=== PATIENT | female | born 1945 | race African-American/Black ===

== ENCOUNTER 2018-05-31 16:29 | Emergency (ER) | payer OTHER ==
[2018-05-31 18:05] LABS: #Basophils 0.1 thou/uL (0.0-0.2); #Eosinphils 0.2 thou/uL (0.0-0.7); #Lymphocytes 2.9 thou/uL (1.20-3.40); #Monocytes 0.8 thou/uL (0.11-0.59); #Neutrophils 5.6 thou/uL (1.40-6.50); %Basophils 0.7 % (0.0-1.0); %Eosinophils 2.1 % (0.0-10.0); %Lymphocytes 30.6 % (21.0-51.0); %Monocytes 8.4 % (0.0-10.0); %Neutrophils 58.2 % (42.0-75.0); Hemoglobin 12.2 g/dL (12.0-16.0); Mean Corpuscular HGB CONC 33.2 g/dL (32.0-36.0); Mean Corpuscular Hemoglobin 30.8 pg (27.0-31.0); Mean Corpuscular Volume 92.8 fL (78.0-98.0); Mean Platelet Volume 9.3 fL (7.4-10.4); Platelet Count 303 thou/uL (130-400); RBC Distribution Width 11.7 % (11.5-14.5); Red Blood Cell (RBC) Count 3.96 mill/uL (4.20-5.40); White Blood Cell (WBC) Count 9.6 thou/uL (4.8-10.8)
[2018-05-31 18:33] LABS: ALT (SGPT) 12 U/L (8-55); AST (SGOT) 20 U/L (5-34); Albumin 4.4 g/dL (3.4-4.8); Alkaline Phosphatase 94 U/L (40-150); Anion Gap 10 mmol/L (10-20); BUN (Urea Nitrogen) 16 mg/dL (9.8-20.1); Bilirubin, Total 1.4 mg/dL (0.2-1.2); Calc. Creatinine Clearance 0 mL/min (70-130); Calcium 9.7 mg/dL (7.8-10.44); Carbon Dioxide 27 mmol/L (23-31); Chloride 105 mmol/L (98-107); Estimated GFR-MDRD 68; Globulin 3.1 g/dL (2.4-3.5); Glucose 103 mg/dL (80-115); Potassium 4.3 mmol/L (3.5-5.1); Protein, Total 7.5 g/dL (6.0-8.3); Sodium 138 mmol/L (136-145)
[2018-05-31 18:35] LABS: CKMB 0.7 ng/mL (0-6.6); Troponin I Less than 0.010 ng/mL (< 0.028)
[2018-05-31 20:15] LABS: CK (CPK) 103 U/L (29-168); Lipase 100 U/L (8-78)
[2018-05-31 20:49] LABS: Troponin I Less than 0.010 ng/mL (< 0.028)
--- NOTE | 2018-05-31 20:56 | RAD ---
PORTABLE AP CHEST X-RAY: 05/31/2018 HISTORY: Chest pain. FINDINGS: The cardiac silhouette and pulmonary vasculature are within normal limits. The lungs are clear. The re is left glenohumeral osteoarthropathy. Roxton screws overly the right humeral head. There is a l ucency with sclerotic margins seen in the proximal right humerus, which has a nonaggressive appearanc e and may potentially be post surgical in origin. A gastric band overlies the left upper quadrant. Vascular calcifications are seen in the thoracic aorta. IMPRESSION: No acute cardiopulmonary process. POS: [facility]
--- NOTE | 2018-06-05 13:26 | EKG ---
Test Reason : Blood Pressure : / mmHG Vent. Rate : 048 BPM Atrial Rate : 048 BPM P-R Int : 184 ms QRS Dur : 080 ms QT Int : 446 ms P-R-T Axes : 013 004 -20 degrees QTc Int : 398 ms Sinus bradycardia Abnormal ECG No ST elevation/UT Confirmed by LUNA KURTZ ([id number]), proposal editor MATHEUS CUBA ([id number]) on 06/05/2018 1:26:04 PM Referred By: Confirmed By:LUNA KURTZ
== END 2018-05-31 23:10 | disposition home or self-care (01) ==
LOC: ERS 16:29
DX: R07.89 Other chest pain (principal); I10 Essential (primary) hypertension
CPT/HCPCS: 36415; 71045; 80053; 82553; 83690; 84484; 85025; 93005

== ENCOUNTER 2018-08-13 14:18 | Inpatient (IN) | payer OTHER ==
[2018-08-13 15:02] LABS: #Basophils 0.1 thou/uL (0.0-0.2); #Eosinphils 0.3 thou/uL (0.0-0.7); #Lymphocytes 2.4 thou/uL (1.20-3.40); #Monocytes 0.8 thou/uL (0.11-0.59); #Neutrophils 6.2 thou/uL (1.40-6.50); %Basophils 0.6 % (0.0-1.0); %Eosinophils 2.9 % (0.0-10.0); %Lymphocytes 24.6 % (21.0-51.0); %Monocytes 8.6 % (0.0-10.0); %Neutrophils 63.3 % (42.0-75.0); Hemoglobin 12.9 g/dL (12.0-16.0); Mean Corpuscular HGB CONC 32.7 g/dL (32.0-36.0); Mean Corpuscular Hemoglobin 30.3 pg (27.0-31.0); Mean Corpuscular Volume 92.7 fL (78.0-98.0); Mean Platelet Volume 10.8 fL (7.4-10.4); Platelet Count 199 thou/uL (130-400); RBC Distribution Width 11.8 % (11.5-14.5); Red Blood Cell (RBC) Count 4.26 mill/uL (4.20-5.40); White Blood Cell (WBC) Count 9.7 thou/uL (4.8-10.8)
[2018-08-13] MEDS ORDERED: hydrALAZINE 20 MG/ML VIAL ONE (15:23)
[2018-08-13] MEDS ORDERED: Metoclopramide HCl 10 MG/2 ML VIAL ONE (15:48)
--- NOTE | 2018-08-13 16:45 | CT ---
CT BRAIN WITHOUT CONTRAST: HISTORY: Headache. COMPARISON: None. FINDINGS: There is no acute hemorrhage or infarct. No midline shift or mass effect. Ventricular size and extr aaxial CSF spaces are normal. The paranasal sinuses and mastoids are clear. The soft tissues are unremarkable. IMPRESSION: No acute intracranial abnormality. POS: [facility]
[2018-08-13 18:14] LABS: AST (SGOT) 23 U/L (5-34); Bilirubin, Total 1.8 mg/dL (0.2-1.2); Chloride 108 mmol/L (98-107); Potassium 4.9 mmol/L (3.5-5.1); Sodium 141 mmol/L (136-145)
[2018-08-13 19:36] LABS: Albumin 3.9 g/dL (3.4-4.8)
[2018-08-13 19:38] LABS: Glucose 122 mg/dL (80-115)
[2018-08-13 19:39] LABS: Globulin 2.8 g/dL (2.4-3.5); Protein, Total 6.7 g/dL (6.0-8.3)
[2018-08-13 19:40] LABS: Anion Gap 12 mmol/L (10-20); Carbon Dioxide 28 mmol/L (23-31)
[2018-08-13 19:41] LABS: Alkaline Phosphatase 109 U/L (40-150)
[2018-08-13 19:42] LABS: Calc. Creatinine Clearance 0 mL/min (70-130); Estimated GFR-MDRD 81
[2018-08-13 19:43] LABS: BUN (Urea Nitrogen) 12 mg/dL (9.8-20.1)
[2018-08-13] MEDS ORDERED: Acetaminophen 325 MG TAB ONE (19:43)
[2018-08-13 19:44] LABS: ALT (SGPT) 13 U/L (8-55)
[2018-08-13 19:53] LABS: Troponin I Less than 0.010 ng/mL (< 0.028)
[2018-08-13] MEDS ORDERED: Ondansetron ODT 4 MG TAB SL PRN (21:49)
[2018-08-13] MEDS ORDERED: Ondansetron PF 4 MG/2 ML Vial IVP PRN (21:49)
[2018-08-13] MEDS ORDERED: Acetaminophen 325 MG TAB PO PRN (21:49)
[2018-08-13 22:25] LABS: Troponin I Less than 0.010 ng/mL (< 0.028)
[2018-08-13 22:33] VITALS: BMI 23.7
[2018-08-14] MEDS ORDERED: Bisacodyl 5 MG TAB PO PRN (06:46)
[2018-08-14] MEDS ORDERED: Acetaminophen 325 MG TAB PO PRN (06:46)
[2018-08-14] MEDS ORDERED: hydrALAZINE 20 MG/ML VIAL SLOW IVP PRN (06:49)
[2018-08-14] MEDS ORDERED: cloNIDine 0.1 MG TAB PO PRN (06:49)
--- NOTE | 2018-08-14 07:57 | HP ---
PRIMARY CARE PROVIDER: Dr. Deven Leonard in [place], [place]. CHIEF COMPLAINT: High blood pressure. HISTORY OF PRESENT ILLNESS: Ms. Moreno is a pleasant 72-year-old lady, who was seen at [facility] on August 14, 2018. She has a history of hypertension and dyslipidemia. She reports that over the last few weeks, her blood pressures have been high at home. She denies any chest pain or shortness of breath. She reports headaches over the last 2 weeks. She describes them as right-sided, sharp, 10/10 at worst, nonradiating, initially on and off, but constant more recently. Not accompanied by nausea or vomiting. She reports blurriness of vision occasionally when she has a headache. She also reports seeing spots when she has the headache. REVIEW OF SYSTEMS: All other systems reviewed and found to be negative. PAST MEDICAL HISTORY: Dyslipidemia and hypertension. She also reports that her family physician suspected that she may have atrial fibrillation. She has seen a sampler first and is awaiting Holter monitor. She also has a history of gastroesophageal reflux disease. PAST SURGICAL HISTORY: Right knee replacement, bilateral rotator cuff surgery, bilateral foot surgery, back surgery, section x2, dental surgery, cataract surgery bilaterally, appendectomy, and laparoscopic banding. SOCIAL HISTORY: The patient denies tobacco use, alcohol use or recreational drug use. FAMILY HISTORY: Heart disease in her father. CODE STATUS: I discussed her code status. She is full code. ALLERGIES: NO KNOWN DRUG ALLERGIES. CURRENT MEDICATIONS: 1. Aspirin 81 mg daily. 2. Metoprolol tartrate 25 mg two times a day. 3. Atorvastatin 20 mg daily. PHYSICAL EXAMINATION: GENERAL: On examination, Ms. Moreno is awake and alert, not in acute distress. VITAL SIGNS: Blood pressure is 167/77, pulse 63, temperature 99 degrees Fahrenheit, and respiratory rate 21. Oxygen saturation is 96% on room air. In the emergency room, she had a blood pressure of 220/98. EYES: No scleral icterus, no conjunctival pallor. ENT: Moist mucosal membranes. No oropharyngeal erythema or exudates. NECK: Supple, nontender, trachea is midline. RESPIRATORY: The accessory muscles of breathing are not active. Chest wall movements are symmetric bilaterally. Lungs are clear to auscultation without wheeze, rhonchi or crepitations. CARDIOVASCULAR: S1 and S2 are heard, regular. Peripheral pulses palpable. No carotid bruit. No pericardial rub. ABDOMEN: Soft, nontender, bowel sounds are heard. NEUROLOGIC: Cranial nerves 2 through 12 intact, deep tendon reflexes 2+. MUSCULOSKELETAL: Right temporal region is nontender. Power is 5/5 in all four extremities. SKIN: No rashes or subcutaneous nodules. LYMPHATIC: No cervical lymphadenopathy. PSYCHIATRIC: Normal mood, normal affect, the patient is oriented to person, place and time. DIAGNOSTIC STUDIES: Ms. Moreno's labs and investigations were reviewed. I reviewed her electrocardiogram, which shows sinus bradycardia. She has T-wave inversions in the inferior and anterior leads. I also reviewed her noncontrast CT scan of the brain, which did not show any acute intracranial abnormality. She had an unremarkable CBC, normal sodium, normal potassium, normal creatinine, elevated total bilirubin of 1.8, otherwise unremarkable liver profile and troponin-I, that is negative x3. ASSESSMENT AND PLAN: Ms. Moreno is a pleasant 72-year-old lady, who was seen at [facility] on August 14, 2018. Her problem list includes: 1. Hypertensive urgency: Ms. Moreno presented with hypertensive urgency to the emergency room. She received intravenous hydralazine with improvement in her blood pressure. She reports that her headache has improved. I will start her on scheduled hydralazine. We will also add p.r.n. clonidine. We will continue her metoprolol for now. She is currently not bradycardic. If she develops bradycardia, may need to hold beta-viktoriya. 2. Abnormal EKG: The patient has diffuse T-wave inversions. We will check 2D echocardiogram. If there are significant abnormalities, she may need Cardiology Service consultation. 3. Gastroesophageal reflux disease: Appears to be stable. 4. Headaches: New onset. Could be secondary to hypertensive urgency. CT scan of the brain is unremarkable. If she continues to have headaches after improvement in blood pressure, she may need Neurology consultation. Many thanks for allowing me to participate in your patient's care. Please feel free to contact me with any questions or concerns. LEVEL OF RISK: High. LEVEL OF COMPLEXITY: High. Job ID: [id number]
[2018-08-14] MEDS: Enoxaparin Sodium 40 MG/0.4 ML SYRINGE SC SCH (09:05)
[2018-08-14] MEDS: Metoprolol Tartrate 25 MG TAB PO SCH ×2 (09:05→20:51)
[2018-08-14] MEDS: Atorvastatin Calcium 20 MG TAB PO SCH (09:05)
[2018-08-14] MEDS: hydrALAZINE 25 MG TAB PO SCH ×3 (09:05→20:50)
--- NOTE | 2018-08-14 13:43 | PDOC.EVN ---
Event Note - Event Note Event Note: DC SUMMARY #[id number]
--- NOTE | 2018-08-15 02:57 | DIS ---
DATE OF ADMISSION: 08/13/2018 DATE OF DISCHARGE: 08/14/2018 ADMITTING DIAGNOSES: 1. High blood pressure. 2. Headache. DISCHARGE DIAGNOSES: 1. High blood pressure, resolved. 2. Headache, stabilized. HOSPITAL COURSE: This is a pleasant 72-year-old female who was admitted to the hospital complaining of headaches, was admitted to the Internal Medicine Team, had an echocardiogram performed as well as given pain medication and blood pressure medications. Patient's blood pressure was normalized and her headache resolved. The patient upon the time of discharge was stable. Denied any nausea, vomiting, diarrhea, constipation, chest pain, or exertional shortness of breath. Patient was given a prescription for Fioricet to take one tablet every 6 hours for headache and also given 30 tablets. Patient had an echocardiogram performed which was stable. Followup with PCP was advised within one week for further management and care. Patient otherwise is stable with no complaints at the time of discharge. Follow up with PCP in one week. MEDICATIONS: See MAR. Script for Fioricet given. ACTIVITY: As tolerated with assistance as needed. DIET: Low-fat, low-calorie, high-fiber diet. CONDITION: Stable. PROGNOSIS: Good. Case and plan discussed with patient at length. She understands and agrees with this plan. Job ID: [id number]
[2018-08-15 05:29] LABS: #Basophils 0.1 thou/uL (0.0-0.2); #Eosinphils 0.3 thou/uL (0.0-0.7); #Lymphocytes 2.7 thou/uL (1.20-3.40); #Monocytes 0.6 thou/uL (0.11-0.59); %Basophils 0.9 % (0.0-1.0); %Eosinophils 3.6 % (0.0-10.0); %Lymphocytes 34.9 % (21.0-51.0); %Monocytes 8.1 % (0.0-10.0); %Neutrophils 52.5 % (42.0-75.0); Hemoglobin 11.7 g/dL (12.0-16.0); Mean Corpuscular Hemoglobin 30.6 pg (27.0-31.0); Mean Corpuscular Volume 92.7 fL (78.0-98.0); Platelet Count 172 thou/uL (130-400); RBC Distribution Width 11.8 % (11.5-14.5); Red Blood Cell (RBC) Count 3.82 mill/uL (4.20-5.40); White Blood Cell (WBC) Count 7.7 thou/uL (4.8-10.8)
[2018-08-15 05:45] LABS: Anion Gap 10 mmol/L (10-20); BUN (Urea Nitrogen) 14 mg/dL (9.8-20.1); Calc. Creatinine Clearance 64 mL/min (70-130); Calcium 8.7 mg/dL (7.8-10.44); Carbon Dioxide 25 mmol/L (23-31); Chloride 107 mmol/L (98-107); Estimated GFR-MDRD 88; Glucose 89 mg/dL (80-115); Potassium 4.2 mmol/L (3.5-5.1); Sodium 138 mmol/L (136-145)
[2018-08-15] MEDS: Atorvastatin Calcium 20 MG TAB PO SCH (08:32)
[2018-08-15] MEDS: Enoxaparin Sodium 40 MG/0.4 ML SYRINGE SC SCH (08:32)
[2018-08-15] MEDS: Metoprolol Tartrate 25 MG TAB PO SCH (08:32)
[2018-08-15] MEDS: hydrALAZINE 25 MG TAB PO SCH (08:32)
[2018-08-15 11:17] VITALS: BP 149/76; TEMP 97.9
== END 2018-08-15 11:25 | DRG 305 ==
LOC: ERS 14:18 → 2NO 17:08
PROVIDERS: ADMIT Family Medicine; ATTEND Family Medicine
DX: I16.0 Hypertensive urgency (principal); E78.5 Hyperlipidemia, unspecified; K21.9 Gastro-esophageal reflux disease without esophagitis; R94.31 Abnormal electrocardiogram [ECG] [EKG]; I48.91 Unspecified atrial fibrillation; Z96.651 Presence of right artificial knee joint; Z90.49 Acquired absence of other specified parts of digestive tract; Z98.41 Cataract extraction status, right eye; Z98.42 Cataract extraction status, left eye; Z98.890 Other specified postprocedural states; Z79.82 Long term (current) use of aspirin; Z79.899 Other long term (current) drug therapy
CPT/HCPCS: 36415; 70450; 80048; 80053; 84484; 85025; 93005; 93306; J0360; J1650; J2765

== ENCOUNTER 2021-05-14 08:16 | Outpatient (CLI) | payer OTHER | END 2021-05-14 08:17 | disposition home or self-care (01) | LOC: BICULT 08:16 | PROVIDERS: ATTEND Family Medicine | DX: E80.7 Disorder of bilirubin metabolism, unspecified (principal); K82.4 Cholesterolosis of gallbladder; N28.1 Cyst of kidney, acquired; K83.8 Other specified diseases of biliary tract; K76.9 Liver disease, unspecified | CPT/HCPCS: 76700 ==